=== PATIENT | female | born 1955 | race Caucasian/White ===

== ENCOUNTER → 2019-09-25 11:24 | Outpatient (CLI) | payer OTHER, SELFPAY ==
--- NOTE | 2019-09-25 | DI.MG.S_ITS ---
BILATERAL DIGITAL SCREENING MAMMOGRAM 3D/2D WITH CAD: 09/25/2019 CLINICAL: Routine screening. Comparison is made to exams dated: 03/29/2016 mammogram, 03/17/2013 mammogram, and 03/20/2013 mammogram - [facility]. The tissue of both breasts is heterogeneously dense. This may lower the sensitivity of mammography. Current study was also evaluated with a Computer Aided Detection (CAD) system. There is an irregular mass with a spiculated margin in the left breast superior lateral quadrant posterior depth. There is architectural distortion associated with the mass. There also is an oval asymmetry with an indistinct margin in the left breast anterior depth medial region seen on the craniocaudal view only. No other significant masses, calcifications, or other findings are seen in either breast. IMPRESSION: INCOMPLETE: NEEDS ADDITIONAL IMAGING EVALUATION The irregular mass in the left breast superior lateral quadrant posterior depth is indeterminate. Additional views with possible ultrasound are recommended. The oval asymmetry in the left breast anterior depth medial region seen on the craniocaudal view only is indeterminate. Additional views with possible ultrasound are recommended. This exam was interpreted at Station ID: [id number]. NOTE: For mammograms, a report in lay terms will be sent to the patient. Approximately 15% of breast malignancies will not be visualized mammographically. In the management of a palpable breast mass, a negative mammogram must not discourage biopsy of a clinically suspicious lesion. Electronically Signed By: Torres Sanchez M.D. ecl/:09/25/2019 14:41:48 letter sent: Additional Imaging Needed ACR BI-RADS Category 0: Incomplete [id number]
== END ==
PROVIDERS: PCP Family Medicine; Visit Provider Family Medicine
DX: Z12.31 Encounter for screening mammogram for malignant neoplasm of breast (principal)
CPT/HCPCS: 77063; 77067

== ENCOUNTER → 2019-10-15 07:37 | Outpatient (CLI) | payer OTHER, SELFPAY ==
--- NOTE | 2019-10-15 | DI.MG.S_ITS ---
UNILATERAL LEFT DIGITAL DIAGNOSTIC MAMMOGRAM 3D/2D WITH ADDITIONAL VIEWS: 10/15/2019 CLINICAL: Additional evaluation requested from prior study. Comparison is made to exams dated: 09/25/2019 mammogram, 03/29/2016 mammogram, and 03/20/2013 mammogram - [facility]. The tissue of left breast is heterogeneously dense. This may lower the sensitivity of mammography. Previously identified irregular mass with a spiculated margin in the left breast superior lateral quadrant posterior depth with associated architectural distortion on comparison screening mammograms of 09/25/19 persists with additional views. Previously noted oval asymmetry with an indistinct margin in the left breast anterior depth medial region seen on the craniocaudal view only on comparison screening mammograms of 09/25/19 resolves and has the appearance of benign fibroglandular tissues on additional views. IMPRESSION: INCOMPLETE: NEEDS ADDITIONAL IMAGING EVALUATION 1) Previously identified irregular mass with a spiculated margin in the left breast superior lateral quadrant posterior depth with associated architectural distortion on comparison screening mammograms of 09/25/19 persists with additional views. A targeted ultrasound is recommended for further evaluation, and will be performed immediately following this exam. 2) Previously noted oval asymmetry with an indistinct margin in the left breast anterior depth medial region seen on the craniocaudal view only on comparison screening mammograms of 09/25/19 resolves and has the appearance of benign fibroglandular tissues on additional views. A targeted ultrasound is recommended and will be performed immediately following this exam. This exam was interpreted at Station ID: [id number]. NOTE: For mammograms, a report in lay terms will be sent to the patient. Approximately 15% of breast malignancies will not be visualized mammographically. In the management of a palpable breast mass, a negative mammogram must not discourage biopsy of a clinically suspicious lesion. Electronically Signed By: Torres Sanchez M.D. ecl/:10/15/2019 09:03:58 ACR BI-RADS Category 0: Incomplete [id number]
--- NOTE | 2019-10-15 | DI.US.S_ITS ---
LIMITED ULTRASOUND OF LEFT BREAST: 10/15/2019 CLINICAL: Patient returns today to evaluate asymmetries in the left breast. Comparison is made to exams dated: 10/15/2019 mammogram, 09/25/2019 mammogram, 03/29/2016 mammogram, 03/20/2013 mammogram, 03/17/2013 mammogram - [facility], and 11/14/2009 mammogram - [facility]. Color flow and real-time ultrasound of the left breast upper inner, lower inner, and and upper outer quadrants regions were performed. [place] scale images of the real-time examination were reviewed. There is an irregular hypoechoic mass with a spiculated margin in the left breast superior lateral quadrant at 1:30 position 7 cm from the nipple which measures 0.9 x 0.7 x 0.6 cm with internal vascularity on Doppler imaging. Targeted ultrasound of the left axilla demonstrates morphologically unremarkable lymph nodes with preserved fatty jermey and no suspicious cortical thickening. There is no ultrasound correlate for the previously noted oval asymmetry with an indistinct margin in the left breast anterior depth medial region seen on the craniocaudal view only on comparison screening mammograms of 09/25/19, which also resolved on additional diagnostic mammogram views performed earlier today 10/15/19. IMPRESSION: HIGHLY SUGGESTIVE OF MALIGNANCY 1) 0.9 x 0.7 x 0.6 cm irregular spiculated vascular mass in the left breast at 1:30 position 7 cm from the nipple is highly suggestive of malignancy. An ultrasound guided biopsy is recommended. 2) No ultrasound evidence of left axillary lymphadenopathy. These results and recommendations were discussed with the patient at the time of the exam by the [facility] Radiologist Dr. Meliton Meyer in person. This exam was interpreted at Station ID: [id number]. Electronically Signed By: Torres Sanchez M.D. ecl/:10/15/2019 09:35:24 letter sent: Biopsy Required Ultrasound BI-RADS: 5 Highly suggestive of malignancy
--- NOTE | 2019-12-01 14:58 | ONC.MSW ---
Description: T/C re: scheduling initial consult visit Activity: Spoke with pt, who is recovering from her breast surgery yesterday. Discussed the appointment times available, as well as what to expect the first visit with the Oncologist. Confirmed the appt. time for 12/14 at 1:40pm, 1:20 check-in time. Notified schedulers.
== END ==
PROVIDERS: PCP Family Medicine; Visit Provider Family Medicine
DX: R92.8 Other abnormal and inconclusive findings on diagnostic imaging of breast (principal); N63.21 Unspecified lump in the left breast, upper outer quadrant
CPT/HCPCS: 76642; 77065; G0279

== ENCOUNTER → 2019-11-05 12:23 | Outpatient (CLI) | payer OTHER, SELFPAY ==
--- NOTE | 2019-11-05 | DI.MG.S_ITS ---
UNILATERAL LEFT DIGITAL DIAGNOSTIC MAMMOGRAM POST-NEEDLE BIOPSY: 11/05/2019 CLINICAL: Left breast mass. Comparison is made to exams dated: 10/15/2019 ultrasound, 10/15/2019 mammogram, and 09/25/2019 mammogram - [facility]. The tissue of left breast is heterogeneously dense. This may lower the sensitivity of mammography. Biopsy clip is in the expected area of the left breast. IMPRESSION: Biopsy clip in the expected area of the left breast. This exam was interpreted at Station ID: [id number]. NOTE: For mammograms, a report in lay terms will be sent to the patient. Approximately 15% of breast malignancies will not be visualized mammographically. In the management of a palpable breast mass, a negative mammogram must not discourage biopsy of a clinically suspicious lesion. Electronically Signed By: Rolando Mendiola M.D. fx/:11/05/2019 16:21:23 ACR BI-RADS Category n/a
--- NOTE | 2019-11-05 | PATH_ITS ---
[facility] Accession Number: [id number] . 01 Material submitted: . breast - LEFT BREAST MASS 1:30 7 CM FN . 01 Clinical history: . LEFT BREAST MASS . 02 Diagnosis: Left Breast Mass, 1:30 o'clock, 7 cm From Nipple, Needle Core Biopsies: Invasive ductal carcinoma with the following features: [place] grade: 1 of 3 (intermediate tubule formation, low nuclear grade, low mitotic activity). Greatest linear extent: 3 mm. Ductal carcinoma in situ: Not identified. Microcalcifications: Not identified. Lymphovascular invasion: Not identified. Prognostic markers: See below. . CAP BREAST BIOMARKERS: . Estrogen Receptor (ER) Status: Positive, 90%. Average intensity of staining: Strong. Primary antibody: SP1 Progesterone Receptor (PgR) Status: Positive, 90%. Average intensity of staining: Strong. Primary antibody: 1E2 HER2 (by immunohistochemistry): Negative (1+). Primary antibody: 4B5 . . Cold Ischemia and Fixation Times: Meets requirements in the latest version of the ASCO/CAP guidelines. Testing performed on Block Number: A1 . TECHNICAL NOTE: The scoring criteria for breast biomarkers by immunohistochemistry is based on the current ASCO/CAP guidelines (Cj et al, Arch Pathol Lab Med 2010: 134(6): 907-922 / Robin LACKEY et al, Arch Pathol Lab Med 2014: 138(2): 241-256). Deparaffinized sections of formalin fixed tissue (along with appropriate positive controls) are incubated with the above antibody(s). Using the automated [place] stainer, tissue is incubated with the designated antibody* which is then localized by a non-biotin, dual polymer detection system. The external controls are reviewed for appropriate reactivity and found to be adequate. Results on the target cell population are indicated above. These tests have not been validated on decalcified tissue. * This test was developed and its performance characteristics determined by [employer]. It has not been cleared or approved by the U.S. Food and Drug Administration. The FDA has determined that such clearance or approval is not necessary. This test is used for clinical purposes. It should not be regarded as investigational or for research. MRV 11/10/2019 1512 Local . 02 Comment: As part of routine quality assurance supervisor body, Dr. Hyde has reviewed the H/E slides from this case and agrees with the diagnosis of ductal carcinoma. The finding of ductal carcinoma was reported to Dr. Rashaun Hinton via RN Mya by Dr. Castillo on 11/09/2019 at 3:00 p.m. . 02 Electronically signed: . Zafar Castillo MD, PhD, Pathologist NPI- [id number] . 01 Gross description: . Received one formalin-filled container, labeled with the patient's name, designated left breast mass 1:30 7 cm FN. The specimen is received with a plastic filter in container, sample loose in container and consists of multiple light yellow-ding portions of soft tissue which range in size from 0.1 x 0.1 x 0.1 cm to 0.8 x 0.2 x 0.2 cm. The specimen is filtered, wrapped, and entirely submitted in one cassette. Collection date: 11/05/19. Collection time per container: 1:23 p.m. Total fixation time: Approximately 11 hours. ([id number]) /[facility] 11/06/2019 0237 Local . 02 Pathologist provided ICD-10: C50.412 . 02 CPT . 298125, M08827, B90115 Performed at: 01 [facility] [address] [place] [id number] MD Israel Alvarado MD Phone: [phone] Performed at: 02 [facility] [address] [place], [place] [id number] MD Tiffany Epstein MD Phone: [phone]
--- NOTE | 2019-11-05 | DI.US.S_ITS ---
ULTRASOUND GUIDED BIOPSY LEFT BREAST USING VACUUM DEVICE WITH POST MAMMOGRAPHIC AND ULTRASOUND IMAGIN11/05/2019 CLINICAL: Left breast mass. PATIENT CONSENT: Risks (minor bleeding, infection, vasovagal reaction and repeat procedure), benefits and alternatives were explained to the patient and written informed consent was obtained. Correlation is made to exams dated: 10/15/2019 ultrasound, 10/15/2019 mammogram, 09/25/2019 mammogram, 03/29/2016 mammogram, 03/20/2013 mammogram, and 03/17/2013 mammogram - [facility]. An ultrasound guided biopsy using real-time ultrasound was performed for the oval mass located in the left breast at 1:30 position 7 cm from the nipple. This was described on the previous ultrasound report. The skin was prepped in the usual manner. Local anesthetic was administered to the access site. The abnormality was approached from the lateral aspect. A 13 gauge biopsy needle was placed adjacent to the abnormality under ultrasound guidance. Once the needle was documented to be in the correct location, six specimens were obtained using the Mammotome biopsy system. Post procedure mammographic and ultrasound imaging demonstrates the clip at the targeted area. The specimens were sent to the laboratory for pathological analysis. IMPRESSION: ULTRASOUND GUIDED BIOPSY MALIGNANT Ultrasound guided biopsy of the mass in the left breast at 1:30 position 7 cm from the nipple was successful. Final pathology results per pathologist Dr. Zafar Castillo identified malignant invasive ductal carcinoma. Pathology results are concordant with imaging. Surgical and oncology consults are recommended for further evaluation and management. These results will be communicated to the patient's referring provider. This exam was interpreted at Station ID: [id number]. Rolando bertrand,ecl/:11/11/2019 18:24:27
--- NOTE | 2019-11-17 11:32 | ONC.MSW ---
Description: New Referral Navigation T/C Activity: Left message for pt confirming that we have received her referral, introduced myself as the navigator and requested a return call to discuss her referral and scheduling.
--- NOTE | 2019-11-18 14:16 | ONC.MSW ---
Description: T/C re: referral/scheduling Activity: Called pt and discussed her referral and plan for treatment. Pt is scheduled on 11/30/19 for her lumpectomy, and she will be getting her radiation at [facility]. She was unsure of the role of the Oncologist in her care, INFORMATION BROKER discussed the need to establish care for ongoing maintenance and endocrine therapy once she is done with radiation. Offered support and counseling re: her fears and concerns. Discussed a plan for her to come in for her initial consult visit with the oncologist the last week of November, 2-weeks after her surgery. Forwarded to scheduling to f/u.
--- NOTE | 2019-11-30 12:36 | ONC.MSW ---
Description: T/C re: scheduling Activity: Pt had called inquiring about scheduling and wanting to make sure that we could give her a medical marijuana authorization. Called pt back and left a message with 2-dates and times available for an initial consult visit. Requested she return this call in order to move forward with scheduling.
== END ==
PROVIDERS: PCP Family Medicine; Visit Provider Family Medicine
DX: C50.412 Malignant neoplasm of upper-outer quadrant of left female breast (principal); Z17.0 Estrogen receptor positive status [ER+]
CPT/HCPCS: 19083; 77065

== ENCOUNTER 2019-11-30 08:39 | Day surgery (SDC) | payer OTHER, SELFPAY ==
[2019-11-27 12:13] VITALS: BMI 25.0
[2019-11-30] VITALS (12 sets, daily range): BP systolic 117–132; BP diastolic 72–86; PULSE 67–84; RESP 8–12; TEMP 36–36.2; O2SAT 94–99; BMI 24.7
--- NOTE | 2019-11-30 | DI.MG.S_ITS ---
DIGITAL MAMMOGRAPHY GUIDED WIRE LOCALIZATION LEFT BREAST- POST-NEEDLE BIOPSY: 11/30/2019 CLINICAL: Left breast mass. Correlation is made to exams dated: 11/05/2019 mammogram, 11/05/2019 ultrasound biopsy, 10/15/2019 mammogram, and 09/25/2019 mammogram - [facility]. A wire localization using digital mammography guidance was performed for the marker clip located in the left breast at 2 o'clock middle depth. The skin was prepped in the usual manner. Local anesthetic was administered to the access site. The localization was approached from the craniocaudal aspect. A wire was inserted into the targeted area under digital mammography guidance. IMPRESSION: WIRE LOCALIZATION Wire localization for the marker clip in the left breast at 2 o'clock middle depth was successful. A specimen radiograph is recommended. This exam was interpreted at Station ID: [id number]. Timo saenz/:11/30/2019 14:52:57
--- NOTE | 2019-11-30 | DI.MG.S_ITS ---
SPECIMEN LEFT BREAST: 11/30/2019 CLINICAL: Left breast specimen. Correlation is made to exams dated: 11/30/2019 localization and 11/05/2019 [facility]. A specimen was imaged for the previous biopsy site located in the left breast at 2 o'clock middle depth. IMPRESSION: SPECIMEN The imaged specimen includes a biopsy clip and the distal portion of the localization wire. Waiting for pathology results. A final report will be issued when these become available. This exam was interpreted at Station ID: [id number]. Timo saenz/:12/02/2019 10:14:26
--- NOTE | 2019-11-30 | PATH_ITS ---
[facility] Accession Number: [id number] . 01 Material submitted: . PART A: breast - LEFT BREAST MASS PART B: breast - LEFT BREAST MASS MARGIN PART C: lymph node - LEFT AXILLA SENTINEL NODE PART D: lymph node - LEFT AXILLA NODE (ADJACENT TO SENTINEL NODE) PART E: AXILLARY - LEFT AXILLARY TISSUE PART F: breast - LEFT BREAST MASS, ADDITIONAL TISSUE INFERIOR WALL . 01 Diagnosis: A. Left Breast Mass, Partial Mastectomy: Invasive (ductal) carcinoma, grade 1 of 3 (Melanie combined histologic grade, total score 5/9), with the following features: 1. Tumor size (invasive component): 1.5 cm, by gross measurement; see comment. 2. Tubular differentiation: Moderate degree. (2/3) 3. Nuclear pleomorphism: Intermediate. (2/3) 4. Mitotic rate: Low. (1/3) 5. Ductal carcinoma in situ (DCIS): a. Present, with the following features: i. Nuclear grade: Intermediate. ii. Necrosis: Single cell/punctate necrosis is present. b. Extent: Present on three slides corresponding to tissue slices 6-8, spanning approximately 15 mm. 6. Calcifications: Present, in association with invasive carcinoma, DCIS, and benign breast tissue. 7. Lymphovascular space invasion: Not identified. 8. Resection margins: a. Invasive carcinoma: Negative. - Inferior margin: less than 0.1 cm (block A10), 0.1 cm (blocks A7 and A15). - Anterior margin: 0.1 cm (block A15), 0.15 cm (block A7). - Remaining margins: More than 1 cm. b. DCIS: Negative. - Inferior margin: 0.1 cm (blocks A7 and A10). - Anterior margin: 0.3 cm (block A7). - Remaining margins: More than 1 cm. 9. Prognostic markers (performed on prior biopsy, [facility] case # [id number], 11/05/2019) with the following reported results: a. Estrogen receptor status: Positive. b. Progesterone receptor status: Positive. c. HER2 status: Negative for protein overexpression. 10. Regional lymph node status (please see parts C and D below): Two lymph nodes, negative for malignancy (including one sentinel lymph node). 11. Additional findings: a. Focal atypical ductal hyperplasia, focal flat epithelial atypia, and focal atypical lobular hyperplasia are present. b. Skin, nipple, skeletal muscle and/or chest wall are not present for evaluation. c. Biopsy site changes/clip are present. d. Background fibrocystic change including focal usual ductal hyperplasia, microcysts and columnar cell change/columnar cell hyperplasia. 12. Pathologic stage: pT1c pN0(sn) . B. Left Breast Mass, 'Margin', Excision: Atypical lobular hyperplasia/lobular carcinoma in situ (ALH/LCIS) is present. Focal flat epithelial atypia is also present. Microcalcifications are present in association with benign breast tissue and ALH/LCIS. Radial scar is present. Background fibrocystic change including focal usual ductal hyperplasia, columnar cell change, microcysts, and fibroadenomatoid change. Negative for ductal carcinoma in situ and invasive malignancy. . C. Left Axilla, Bryant Lymph Node, Excisional Biopsy: One lymph node, negative for malignancy (0/1). Associated benign fibrofatty tissue is present. . D. Left Axilla Node, 'Adjacent To Bryant Node', Dissection: One lymph node, negative for malignancy (0/1). Associated benign fibrofatty tissue is present. . E. Left Axillary Tissue, Excision: Benign fibroconnective and fibroadipose tissue. . F. Left Breast Mass, Additional Tissue, Inferior Wall, Excision: Focal atypical lobular hyperplasia (ALH). Background breast with fibrocystic change including adenosis, focal usual ductal hyperplasia, columnar cell change/columnar cell hyperplasia and microcysts. Microcalcifications are present in association with benign breast tissue. Negative for ductal carcinoma in situ and invasive malignancy. [facility] 12/07/2019 0842 Local . 01 Comment: The size of the invasive carcinoma is determined based on gross measurement, and is further ascertained histologically by the involvement of three subsequent slices, each approximately of 0.45 cm in thickness. . 01 Electronically signed: Arianne Louise MD, Pathologist NPI- [id number] . 01 Gross description: . (A) Received: In formalin, labeled left breast mass. Specimen: Left partial mastectomy. Weight: 41 grams. Measurement: 2.5 cm anterior to posterior, 5.0 cm medial to lateral, and 6.0 cm superior to inferior. Skin Ellipse: Apparent questionable 'skin-like' lesional area measuring 1.5 x 0.8 cm is identified on the central inferoanterior aspect. Wire: Present, penetrating the central superior aspect and exiting the central inferior aspect. Margins: Oriented by surgeon with short medial suture and long anterior suture and inked as follows: posterior=black; anterior=purple; superior=blue; inferior=green; medial=yellow; lateral=orange. Sliced: Medial to lateral into 11 slices. Lesion: One lesional area; the cut surface is ferguson-white and irregularly firm. A biopsy clip is identified within slice 8 within the most lateral slice of the lesion. Dr. Da Anne reviewed this excision and agrees with the assessment. Size of lesional area: 1.5 x 0.8 x 0.7 cm. Slices Involved: Slices 6-8. Biopsy Site: Present, biopsy marker identified in slice 8. A densely hemorrhagic area (1.8 x 1.3 x 0.9 cm) is identified in the superior aspect of slices 6-8. The hemorrhagic area is 3.0 cm superior to the apparent skin. Distance To Margins: Less than 0.1 cm from the anterior margin, 1.7 cm from the posterior margin, 4.2 cm from the superior margin, less than 0.1 cm from the inferior margin, 1.7 cm from the medial margin, and 1.7 cm from the lateral margin. Other: The remaining cut surface consists of ding-yellow lobular unremarkable adipose tissue. No other nodules, masses or lesions are identified. Fixation time: The specimen was placed in formalin on 11/30/2019 with no time given. Approximate total fixation time in formalin is calculated to be 56 hours 30 minutes. . Sections: A1: Slice 1, paper sales representative medial end of specimen, perpendicular. A2-A4: Slice 5, tissue medial to apparent skin/lesion and hemorrhagic area, no findings in this slice, submitted superior to inferior, entirely submitted. A5-A7: Slice 6, entirely submitted superior to inferior. A8-A10: Slice 7, entirely submitted superior to inferior. A11-A15: Slice 8, location of biopsy marker, entirely submitted superior to inferior, the superior two-thirds are further bisected. A16-A18: Slice 9, tissue directly lateral to apparent skin/lesion, entirely submitted superior to inferior, no findings within this tissue. (A19): Slice 11, paper sales representative lateral end of specimen, perpendicular. . (B) Received: In formalin, labeled left breast mass margin. Specimen: Left partial mastectomy. Weight: 12 grams. Measurement: 5.0 x 4.0 x 1.5 cm. Skin Ellipse: Absent. Wire: Absent. Margins: Oriented by surgeon with a suture marking the outer wall and inked as follows: outer wall=black; smooth flat surface=blue; surface opposite smooth flat surface=purple; side opposite outer wall=orange. Sliced: The specimen is sliced perpendicularly to the outer wall into 10 slices. Lesions: No obvious nodules, masses or lesions are identified. Other: The cut surface is densely fibrofatty. Fixation time: The specimen was placed in formalin on 11/30/2019 with no time given. Approximate total fixation time in formalin is calculated to be 56 hours 30 minutes. Sections: B1: Slice 1, perpendicular. B2-B9: Slice 2-9, submitted sequentially, one slice in each cassette. B10: Slice 10, perpendicular. Specimen entirely submitted. . (C) Received in formalin, labeled left axilla sentinel node, is a piece of ding-yellow adipose tissue (6.0 x 3.7 x 0.5 cm) containing an unstained lymph node (1.6 x 0.9 x 0.5 cm). The lymph node is serially sectioned and entirely submitted in cassette C1, and the remaining adipose tissue is entirely submitted in cassettes C2-C5. (D) Received in formalin, labeled left axilla node next to sentinel node, is a piece of ding-yellow adipose tissue (5.0 x 2.0 x 1.3 cm) containing an unstained lymph node (2.5 x 1.5 x 1.2 cm). The lymph node is serially sectioned and entirely submitted in cassettes D1-D3, and the remaining adipose tissue is entirely submitted in cassettes D4-D5. (E) Received in formalin, labeled left axillary tissue, is a piece of ding-yellow adipose tissue (3.3 x 2.5 x 0.9 cm) containing an irregular focally firm area (1.8 x 2.0 x 1.0 cm). No obvious lymph node is identified. Serially sectioned and entirely submitted in cassettes E1-E4. (F) Received in formalin, labeled left breast mass-additional tissue inferior wall, is an unoriented piece of ding-yellow rubbery adipose tissue (1 gram, 2.6 x 1.2 x 0.7 cm) with no overlying skin. The tissue is serially sectioned into eight slices and has a fatty focal fibrous firm cut surface. No obvious nodules, masses or lesions are identified. The smooth flat side is inked purple and the irregular side/opposite side is inked blue. Section code: (F1) slice 1, perpendicularly sectioned; (F2) slices 2-4; (F3) slice 5-7; (F4) slice 8, perpendicularly sectioned. Specimen entirely submitted. (:cmc10 [id number]) (MT:cmc10 [id number]) /MRV 12/07/2019 0842 Local . 01 Microscopic: . A focus of detached glandular nests is present within a dilated space in block A7, and is evaluated with D2-40 and p63 immunostains, with appropriately staining external controls, to exclude lymphovascular space invasion. The area of interest is positive for both for D2-40 and p63, in support of no evidence of lymphovascular space invasion; the findings support sloughed epithelium within a ductular space. Deeper levels are examined on A7, A10 and A15. . * This test was developed and its performance characteristics determined by [employer]. It has not been cleared or approved by the U.S. Food and Drug Administration. The FDA has determined that such clearance or approval is not necessary. This test is used for clinical purposes. It should not be regarded as investigational or for research. . 01 Pathologist provided ICD-10: C50.412 . 01 CPT . 267553, H41424, T32124, 297745, 488251, 501279, 665276, 660117 Performed at: 01 [facility] [address] [address] [place] [address] [address] [facility], [place], [place] [id number] MD Israel Alvarado MD Phone: [phone]
--- NOTE | 2019-11-30 09:02 | DI.NM.S_ITS ---
PROCEDURE: NM SENTINEL NODE W IMAGING RADIOPHARMACEUTICAL: 0.5-1.0 mCi Millipore filtered Tc-99m sulfur colloid. INDICATIONS: Mammo guided needle loc and lumpectomy, SN bx TECHNIQUE: The area around the nipple was prepped and draped in a sterile fashion. Tc-99m sulfur colloid was injected intra-dermally in the outer edge of the areola in the left breast. Images were obtained subsequently. A body contour outline was obtained. FINDINGS: There are 4-5 lymph node(s) in the ipsilateral axilla, which is marked on the skin and the images for referring physician. IMPRESSION: Multiple sentinel lymph nodes are identified in the left axilla. Dictated by: Rolando Mendiola M.D. on 11/30/2019 at 11:16 Approved by: Rolando Mendiola M.D. on 11/30/2019 at 11:20
[2019-11-30] MEDS: LACTATED RINGERS 1,000 ML 42 ML IV ×2 (11:05→14:18)
--- NOTE | 2019-11-30 11:06 | SUR.PREOP ---
1158 returned from , [facility] cup is in place, cheerful and talkative, student nurse followed her through the procedure.
--- NOTE | 2019-11-30 11:37 | PM.PREOP ---
Pre-operative Note Interval Note History & Physical reviewed/Exam performed by Physician: Yes Changes to H&P: Yes H&P completed within 30 days and has changed as indicated here:: successful nedle loc/mapping performed
[2019-11-30] MEDS: CEFAZOLIN 2 GM/100 ML FROZ.PIGGY IV (11:45)
--- NOTE | 2019-11-30 12:06 | SUR.OPER ---
Supine on padded OR bed, head on pillow, arms secured on padded arm boards at <90 degrees abduction, legs uncrossed, safety belt at thigh, tape over blanket over lower legs.
[2019-11-30] MEDS: BUPIVACAINE 0.5% (PF) VIAL 30 ML INJ (12:17)
[2019-11-30] MEDS: fentaNYL 100 MCG/2 ML INJ IV ×2 (14:24→14:33)
--- NOTE | 2019-11-30 14:30 | PM.OP.1 ---
Operative Date/Time/Diagnoses Date of procedure: 11/30/19 Time of procedure: 14:09 Pre-op diagnosis: Left-sided breast cancer upper outer quadrant Post-op diagnosis: same Procedure & Clinicians Procedure: Needle localization and lumpectomy with sentinel node biopsy Same procedure as scheduled: Yes Indications: Patient with biopsy-proven invasive breast cancer for surgical treatment Surgeon: Nam Norton Click Yes if Unassisted: Yes Anesthesia Type: General Operative Notes Findings: Concerned about a close margin on the lumpectomy therefore additional tissue was taken in the area of concern. One small hot node identified in the axilla with an adjacent larger node removed as well. Closure Type: primary Specimen(s): other (Multiple pieces of breast tissue and axillary tissue(nodes)) Prosthetic devices, grafts, tissues, transplants, or devices: None Estimated Blood Loss (mL): 40 Blood products transfused: none Procedure in detail: The patient was placed supine on the operating room table underwent general LMA anesthesia. The protective cup around the needle was removed and the needle trimmed in length. Patient was prepped and draped in the usual fashion. A transverse incision was made across the lowest portion of the axilla below the hair-bearing area at to encompass both the the lumpectomy portion of the procedure and the sentinel node biopsy. Using the needle as a guide the tissue around it was taken out. The anterior dissection was right under the skin. Posteriorly we actually got down to the axilla. When I removed the tissue a I was concerned looking at the location of the needle that there may be tumor at the edge and therefore I took additional tissue right at that spot and marked the outside wall with a suture. Once this was removed I cauterized any bleeding vessels in turned my attention the axilla. Using the Neoprobe identified an area of high positivity dissected down to a small lymph node which was removed with its surrounding fat. 10 second counts in this were over 26,000. There were no other axillary counts approaching 250. There was an additional visible enlarged node adjacent to the tissue containing the hot sentinel node and this was removed as well. Cautery was used to control any bleeding. The area was irrigated suctioned free of fluid. Meticulous hemostasis achieved. On palpation there was a small irregular area in the biopsy cavity inferior wall that I removed. This was sent as a separate specimen. The space of the biopsy an portion of the axilla was closed with interrupted 3 0 Vicryl. The skin was closed running 4 0 Vicryl subcuticular stitch and Steri-Strips. Dressing was applied. Patient tolerated the procedure well. Complications: none Post-operative Condition: stable Disposition: PACU Plan for aftercare: Follow-up in the office
[2019-11-30] MEDS: HYDROMORPHONE 2 MG INJ IV ×2 (14:49→14:54)
[2019-11-30] MEDS: MEPERIDINE 50 MG/ML INJ 25 MG IV (14:51)
[2019-11-30] MEDS: HYDROCODONE/ACET 5/325 TABLET 1 TAB PO (15:45)
--- NOTE | 2019-11-30 16:45 | SUR.PHASEII ---
1630 voided, clear yellow urine, took 15 minutes to find car/tow car driver. Fresh ice pack given upon discharge. Drowsy, pleased with improving pain level, [place] pass given. Stable and pleasant, no complaints, all questions answered.
== END 2019-11-30 16:30 | disposition home or self-care (01) ==
PROVIDERS: PCP Family Medicine; Referring Provider Specialist; Visit Provider Specialist
PROC: (CPT 19301; principal; 2019-11-30 11:45)
DX: C50.412 Malignant neoplasm of upper-outer quadrant of left female breast (principal); Z17.0 Estrogen receptor positive status [ER+]
CPT/HCPCS: 19301; 38500; 19281; 76098; 78195; A9541; J0690; J1100; J1170; J2175; J2250; J2405; J2704; J3010

== ENCOUNTER → 2020-04-11 12:48 | Outpatient (CLI) | payer OTHER, SELFPAY | PROVIDERS: PCP Family Medicine; Referring Provider Internal Medicine Hematology & Oncology; Visit Provider Internal Medicine Hematology & Oncology | DX: C50.012 Malignant neoplasm of nipple and areola, left female breast (principal); Z17.0 Estrogen receptor positive status [ER+]; Z78.0 Asymptomatic menopausal state | CPT/HCPCS: 77080 ==

== ENCOUNTER → 2020-10-19 12:42 | Outpatient (CLI) | payer OTHER, SELFPAY ==
--- NOTE | 2020-10-19 | DI.MG.S_ITS ---
BILATERAL DIGITAL DIAGNOSTIC MAMMOGRAM 3D/2D POST LUMPECTOMY: 10/19/2020 CLINICAL: Breast cancer. Comparison is made to exams dated: 11/05/2019 mammogram, 10/15/2019 mammogram, and 09/25/2019 mammogram - [facility]. The tissue of both breasts is heterogeneously dense. This may lower the sensitivity of mammography. There are new benign surgical clips and expected post surgical scar in the left breast in the upper outer quadrant. No significant masses, calcifications, or other findings are seen in either breast. Specifically, no finding to explain the patient's nipple to axilla pain, other than routine surgery items. IMPRESSION: BENIGN There is no unexpected finding seen in the left breast to correspond with the pain in the upper outer quadrant. There is no mammographic evidence of malignancy. Return to annual mammogram screening schedule is recommended. Findings and recommendations were conveyed to the patient at time of exam. This exam was interpreted at Station ID: [id number]. NOTE: For mammograms, a report in lay terms will be sent to the patient. Approximately 15% of breast malignancies will not be visualized mammographically. In the management of a palpable breast mass, a negative mammogram must not discourage biopsy of a clinically suspicious lesion. Electronically Signed By: Rachell sun/:10/19/2020 13:32:22 letter sent: Normal Exam ACR BI-RADS Category 2: Benign Finding(s) 3342F
== END ==
PROVIDERS: PCP Family Medicine; Referring Provider Family Medicine; Visit Provider Family Medicine
DX: N64.4 Mastodynia (principal)
CPT/HCPCS: 77066; G0279

== ENCOUNTER → 2021-12-13 11:30 | Outpatient (CLI) | payer MEDICARE, OTHER, SELFPAY ==
--- NOTE | 2021-12-13 11:32 | DI.MG.S_ITS ---
BILATERAL DIGITAL SCREENING MAMMOGRAM 3D/2D WITH CAD: 12/13/2021 CLINICAL: Routine screening. Personal history of left breast cancer. Comparison is made to exams dated: 10/19/2020 mammogram, 11/05/2019 mammogram, 11/05/2019 ultrasound biopsy, 10/15/2019 mammogram, 09/25/2019 mammogram, and 03/29/2016 mammogram - [facility]. The tissue of both breasts is heterogeneously dense. This may lower the sensitivity of mammography. Current study was also evaluated with a Computer Aided Detection (CAD) system. No significant masses, calcifications, or other findings are seen in either breast. There has been no significant interval change. IMPRESSION: NEGATIVE There is no mammographic evidence of malignancy. A 1 year screening mammogram is recommended. This exam was interpreted at Station ID: [id number]. NOTE: For mammograms, a report in lay terms will be sent to the patient. Approximately 15% of breast malignancies will not be visualized mammographically. In the management of a palpable breast mass, a negative mammogram must not discourage biopsy of a clinically suspicious lesion. Electronically Signed By: Jermaine Mcdermott M.D., jr/codi:12/13/2021 11:56:21 copy to: PETERSON DECKER, ph: [phone], fax: [phone] letter sent: Normal Exam ACR BI-RADS Category 1: Negative [id number]
== END ==
PROVIDERS: PCP Family Medicine; Referring Provider Family Medicine; Visit Provider Family Medicine
DX: Z12.31 Encounter for screening mammogram for malignant neoplasm of breast (principal); Z85.3 Personal history of malignant neoplasm of breast
CPT/HCPCS: 77063; 77067

== ENCOUNTER → 2023-01-02 11:34 | Outpatient (CLI) | payer MEDICARE, OTHER, SELFPAY ==
--- NOTE | 2023-01-02 | DI.MG.S_ITS ---
BILATERAL DIGITAL DIAGNOSTIC MAMMOGRAM 3D/2D: 01/02/2023 CLINICAL: Right lump, Left pain. Comparison is made to exams dated: 12/13/2021 mammogram, 10/19/2020 mammogram, 11/05/2019 mammogram, 11/05/2019 ultrasound biopsy, and 10/15/2019 ultrasound - [facility]. Both breasts are heterogeneously dense, which may obscure small masses (category c / 51-75% glandular tissue). There are benign post operative findings in the left breast. No significant masses, calcifications, or other findings are seen in either breast. IMPRESSION: INCOMPLETE: NEEDS ADDITIONAL IMAGING EVALUATION There is no abnormality seen in the left breast to correspond with the palpable abnormality, however, ultrasound is recommended. This exam was interpreted at Station ID: [id number]. NOTE: For mammograms, a report in lay terms will be sent to the patient. Approximately 15% of breast malignancies will not be visualized mammographically. In the management of a palpable breast mass, a negative mammogram must not discourage biopsy of a clinically suspicious lesion. Electronically Signed By: Bacilio Lau M.D. acr/:01/02/2023 12:37:44 copy to: PETERSON DECKER, ph: [phone], fax: [phone] ACR BI-RADS Category 0: Incomplete 3340F
--- NOTE | 2023-01-02 11:35 | DI.US.S_ITS ---
PROCEDURE: US BREAST RT LIMITED COMPARISON: None. INDICATIONS: HX BREAST CANCER,RIGHT BREAST LUMP FINDINGS: IMPRESSION: Dictated by: Bacilio Lau M.D. on 01/02/2023 at 14:57 Approved by: Bacilio Lau M.D. on 01/02/2023 at 14:58
--- NOTE | 2023-01-02 13:15 | DI.US.S_ITS ---
Procedure: US breast RT limited ULTRASOUND OF RIGHT BREAST: 01/02/2023 CLINICAL: Palpable right breast lump by physician. Comparison is made to exams dated: 01/02/2023 mammogram, 12/13/2021 mammogram, 10/19/2020 mammogram, 09/25/2019 mammogram, 03/29/2016 mammogram, and 03/17/2013 mammogram - [facility]. Color flow, real-time, and continuous wave Doppler ultrasound of the right breast were performed. No abnormality which corresponds with the palpable abnormality is seen. IMPRESSION: NEGATIVE There is no sonographic evidence of malignancy. Clinical followup is recommended. A 1 year screening mammogram is recommended. This exam was interpreted at Station ID: [id number]. Electronically Signed By: Bacilio Lau M.D. acr/:01/02/2023 15:00:40 copy to: PETERSON DECKER, ph: [phone], fax: [phone] Continued Report - Page 2 of 2 Patient Name: STEPHANIE HUMPHREY date: 1955 Sex: F Attending Physician: Derick Indications: Date: 01/02/2023 15:00 At the request of: ANTONIETA ARMENTA Procedure: US breast RT limited Ultrasound BI-RADS: 1 Negative
== END ==
PROVIDERS: PCP Nurse Practitioner Family; Referring Provider Internal Medicine Hematology & Oncology; Visit Provider Internal Medicine Hematology & Oncology
DX: Z85.3 Personal history of malignant neoplasm of breast (principal); N63.10 Unspecified lump in the right breast, unspecified quadrant; N64.4 Mastodynia; R92.2 Inconclusive mammogram
CPT/HCPCS: 76642; 77066; G0279

== ENCOUNTER → 2023-03-12 08:43 | Outpatient (CLI) | payer MEDICARE, OTHER, SELFPAY ==
--- NOTE | 2023-03-12 | DI.MRI.S_ITS ---
PROCEDURE: MR LUMBAR SPINE WO CON INDICATIONS: LUMBAR PAIN TECHNIQUE: Noncontrast sagittal T1 spin echo and T2 fast echo, sagittal STIR, and T2 fast spin echo through the lumbar spine. In cases with scoliosis, additional coronal T2 fast spin echo may be performed. COMPARISON: [facility], CR, XR LUMBAR SPINE WITH OBLIQUES PLUS FLEXION EXTENSION, 03/05/2023, 14:14. FINDINGS: Image quality: Excellent. Alignment and Curvature: 5 lumbar type vertebral bodies are present by plain film. 4 mm of retrolisthesis of L2 on L3. 2 mm of retrolisthesis of L3 on L4. Bone Marrow: Marrow is of normal overall signal. No acute vertebral body compression fractures. Mild reactive signal throughout the endplates of the lumbar and lower thoracic spine. Spinal Cord: Conus medullaris terminates at the mid L2 level. Visualized cord demonstrates normal signal and size. Paraspinous Soft Tissues: No paravertebral masses. T12-L1: Moderate disc desiccation. Mild diffuse disc bulge. Mild canal stenosis. No foraminal stenosis. L1-L2: Mild disc desiccation and diffuse disc bulge. Mild facet and ligamentum flavum hypertrophy. Mild canal stenosis. No foraminal stenosis. L2-L3: Moderate disc desiccation. Mild diffuse disc bulge. Mild epidural lipomatosis. Mild canal stenosis. Mild bilateral foraminal stenosis. L3-L4: Moderate disc desiccation. Mild diffuse disc bulge with superimposed right posterolateral protrusion. Mild facet and ligamentum flavum hypertrophy. Mild epidural lipomatosis. Mild canal stenosis. Moderate right and mild left foraminal stenosis. L4-L5: Mild disc desiccation and diffuse disc bulge. Mild facet and ligamentum flavum hypertrophy. Mild epidural lipomatosis. Mild canal stenosis. Mild right and moderate left foraminal stenosis. L5-S1: Severe disc height loss and desiccation. Mild diffuse disc bulge. Mild bilateral facet hypertrophy. Mild canal stenosis. Mild bilateral foraminal stenosis. IMPRESSION: 1. Multilevel degenerative disc and facet disease, as well as ligamentum flavum hypertrophy and epidural lipomatosis. 2. Mild multilevel canal stenosis. 3. Multilevel foraminal stenoses, worst at L3-L4 and L4-L5 where there are moderate foraminal stenoses. Dictated by: Meliton Meyer M.D. on 03/12/2023 at 10:26 Transcribed by: CASI on 03/12/2023 at 10:29 Approved by: Meliton Meyer M.D. on 03/12/2023 at 15:27
== END ==
PROVIDERS: PCP Nurse Practitioner Family; Referring Provider Physical Medicine & Rehabilitation Pain Medicine; Visit Provider Physical Medicine & Rehabilitation Pain Medicine
DX: M54.50 Low back pain, unspecified (principal); M51.36 Other intervertebral disc degeneration, lumbar region; M48.061 Spinal stenosis, lumbar region without neurogenic claudication; M47.816 Spondylosis without myelopathy or radiculopathy, lumbar region
CPT/HCPCS: 72148

== ENCOUNTER → 2023-04-03 09:30 | Outpatient (CLI) | payer MEDICARE, OTHER, SELFPAY ==
--- NOTE | 2023-04-03 09:46 | DI.DEXA.S_ITS ---
Bone Density Report Name: STEPHANIE HUMPHREY Age: 68 Sex: Female Ethnicity: White Date of : 1955 Indication: osteopenia; Referring Provider: HIPOLITO EPSTEIN Study: Bone densitometry was performed. Exam Date: April 03, 2023 Accession number: [id number] Bone Density: Region BMD T-score Z-score Classification AP Spine(L1-L4) 0.814 -2.1 -0.2 Osteopenia Femoral Neck (Left) 0.725 -1.1 0.5 Osteopenia Total Hip (Left) 0.878 -0.5 0.8 Normal Femoral Neck (Right) 0.739 -1.0 0.6 Normal Total Hip (Right) 0.847 -0.8 0.6 Normal Total Hip Mean 0.863 -0.7 0.7 Normal World Health Organization criteria for BMD impression classify patients as: Normal (T-score at or above -1.0), Osteopenia (T-score between -1.0 and -2.5), or Osteoporosis (T-score at or below -2.5). 10-year Fracture Risk(1): Major Osteoporotic Fracture 8.6% Hip Fracture 0.8% Reported Risk Factors: [place] (), Neck BMD=0.725, BMI=26.2 (1) FRAX(R) Version 3.08. Fracture probability calculated for an untreated patient. Fracture probability may be lower if the patient has received treatment. Previous Exams: -- Region Exam Age BMD T-score BMD Change BMD Change Date g/cm2 vs Baseline vs Previous -- AP Spine (L1-L4) 04/03/2023 68 0.814 -2.1 0.008 (1.0%)# 0.008 (1.0%)# 04/11/2020 65 0.806 -2.2 Total Hip(Left) 04/03/2023 68 0.878 -0.5 -0.005 (-0.6%)# -0.005 (-0.6%)# 04/11/2020 65 0.883 -0.5 Total Hip(Right) 04/03/2023 68 0.847 -0.8 -0.045 (-5.1%)# -0.045 (-5.1%)# 04/11/2020 65 0.892 -0.4 -- *Denotes significance at 95% confidence level, LSC for AP Spine = 0.022 g/cm2, LSC for Total Hip = 0.027 g/cm2 # Denotes dissimilar scan types or analysis methods Impression: The patient has low bone mass, based on the Total Spine T-score. The patient has an estimated ten-year risk of hip fracture of 0.8% and an estimated ten-year risk of major fracture of 8.6%, based on the WHO FRAX algorithm. No significant bone loss was observed. Discussion: BONE DENSITY IS LOW AT ONE OR MORE SKELETAL SITES. This patient's lowest T-score is low at one or more skeletal sites. It meets the World Health Organization's (WHO) criteria for ?low bone mass? (T-score between -1.0 and -2.5). The patient's 10-year risk of fracture as calculated by FRAX is less than the threshold where pharmacological therapy is recommended by the National Osteoporosis Foundation (NOF). However, all treatment decisions require clinical judgment and consideration of individual patient factors, including patient preferences, comorbidities, previous drug use, risk factors not captured in the FRAX model (e.g., frailty, falls, vitamin D deficiency, increased bone turnover, interval significant decline in bone density) and possible under or overestimation of fracture risk by FRAX. The patient should follow a healthful lifestyle (good nutrition with adequate calcium and vitamin D, and appropriate weight-bearing exercise). Follow-Up: Consider repeating this study in 2 to 3 years to reassess this patient's status, or sooner if there is some new clinical indication. Reported by: TRANG GIFFORD M.D. on 04/03/2023 9:54:00 AM.
== END ==
PROVIDERS: PCP Nurse Practitioner Family; Referring Provider Nurse Practitioner Family; Visit Provider Nurse Practitioner Family
DX: M85.88 Other specified disorders of bone density and structure, other site (principal); Z78.0 Asymptomatic menopausal state
CPT/HCPCS: 77080

== ENCOUNTER → 2024-01-07 09:19 | Outpatient (CLI) | payer MEDICARE, OTHER, SELFPAY ==
--- NOTE | 2024-01-07 09:23 | DI.MG.S_ITS ---
BILATERAL DIGITAL SCREENING MAMMOGRAM 3D/2D WITH CAD POST LUMPECTOMY: 01/07/2024 CLINICAL: Routine screening. Personal history of left breast cancer. Comparison is made to exams dated: 01/02/2023 mammogram, 12/13/2021 mammogram, and 10/19/2020 mammogram - [facility]. Both breasts are heterogeneously dense, which may obscure small masses (category c / 51-75% glandular tissue). Current study was also evaluated with a Computer Aided Detection (CAD) system. There are benign post operative findings in the left breast. No significant masses, calcifications, or other findings are seen in either breast. There has been no significant interval change. IMPRESSION: BENIGN There is no mammographic evidence of malignancy. A 1 year screening mammogram is recommended. This exam was interpreted at Station ID: [id number]. NOTE: For mammograms, a report in lay terms will be sent to the patient. Approximately 15% of breast malignancies will not be visualized mammographically. In the management of a palpable breast mass, a negative mammogram must not discourage biopsy of a clinically suspicious lesion. Electronically Signed By: Rickie felix/codi:01/07/2024 13:54:10 copy to: PETERSON DECKER, ph: [phone], fax: [phone] copy to: Ela Colunga letter sent: Normal Exam ACR BI-RADS Category 2: Benign Finding(s) [id number]
== END ==
LOC: MAMMO 09:22
PROVIDERS: PCP Nurse Practitioner Family; Referring Provider Nurse Practitioner Family; Visit Provider Nurse Practitioner Family
DX: Z12.31 Encounter for screening mammogram for malignant neoplasm of breast (principal); Z85.3 Personal history of malignant neoplasm of breast; R92.333 Mammographic heterogeneous density, bilateral breasts
CPT/HCPCS: 77063; 77067

== ENCOUNTER → 2024-08-31 11:27 | Outpatient (CLI) | payer MEDICARE, OTHER, SELFPAY ==
--- NOTE | 2024-08-31 11:32 | DI.MRI.S_ITS ---
BREAST MRI OF BOTH BREASTS: 08/31/2024 CLINICAL: Dense Breasts. Breast cancer. TECHNIQUE: The patient was placed prone in a dedicated breast imaging coil. Precontrast axial STIR and 3D FLASH without fat saturation sequences were obtained. Both before and after bolus injection of contrast, sequential 1-minute axial 3D FLASH with fat saturation sequences for 3 time points, with subtraction images and maximum intensity projections (MIP's) generated. Delayed sagittal FLASH images with fat saturation were also obtained. 20 cc ProHance gadolinium based IV contrast. Computer-aided detection, including computer algorithm analysis of MRI image data for lesion detection and characterization, pharmacokinetic analysis, with further physician review for interpretation, was performed. COMPARISON: [facility], , MM SCREENING MAMMO BI, 01/07/2024, 9:47. US, US BX BREAST PERC W VAC DEVICE, 11/05/2019, 12:42. FINDINGS: Image quality: Excellent. There is mild background parenchymal enhancement. Right breast: No suspicious mass or non masslike enhancement. No nipple or skin abnormality. Left breast: Postsurgical changes in the upper outer left breast posterior depth. No associated abnormal enhancement. Normal intramammary lymph node identified. No suspicious mass or non masslike enhancement. No nipple or skin abnormality. Miscellaneous: No suspicious axillary or internal mammary chain adenopathy. T2 hyperintensity in the right hepatic lobe, cyst versus hemangioma. No abnormal enhancement of the visible chest wall, liver, heart, or lungs. IMPRESSION: BENIGN No MR evidence of malignancy in either breast. Postsurgical changes in the left breast without suspicious enhancement. No adenopathy. Continue annual screening mammography and screening MRI as needed. BIRADS two, benign COMMENT: The imaging literature indicates that a negative contrast breast MRI examination has a high sensitivity and a moderate specificity for detecting and excluding invasive carcinomas to a detection threshold of 3-5 mm; nonetheless, appropriate clinical and mammographic follow-up are recommended. MRI is not sensitive for detecting DCIS (ductal carcinoma in situ) and may not detect large invasive neoplasms that show only minimal enhancement such as mucinous carcinoma. If there are suspicious calcifications or clinically worrisome palpable masses, then biopsy should still be considered. Invasive neoplasms can be hidden by co-existent and benign enhancement caused by mastitis, hormone therapy effects, radiation therapy, , and recent biopsy or surgery. False positive examinations can occur in a number of circumstances, including breasts that have recently been subject to invasive procedures and those that contain atypical ductal hyperplasia, hormonally stimulated glandular tissue, fat necrosis, or radial scars. This exam was interpreted at Station ID: [id number]. Electronically Signed By: Rachell sun/:09/01/2024 16:49:29 copy to: PETERSON DECKER, ph: [phone], fax: [phone] copy to: Ela Colunga letter sent: Normal Exam ACR BI-RADS Category 2: Benign
== END ==
PROVIDERS: PCP Family Medicine; Referring Provider Nurse Practitioner; Visit Provider Nurse Practitioner
DX: C50.912 Malignant neoplasm of unspecified site of left female breast (principal); Z17.0 Estrogen receptor positive status [ER+]
CPT/HCPCS: 77049; A9579

== ENCOUNTER → 2025-01-11 08:56 | Outpatient (CLI) | payer MEDICARE, OTHER, SELFPAY ==
--- NOTE | 2025-01-11 08:57 | DI.MG.S_ITS ---
MM screening mammo BI: 01/11/2025. BI-RADS: 2 CLINICAL: 69-year old female for bilateral screening mammogram. No Tyrer-Cuzick risk score calculation due to the patient's personal history of breast cancer. Patient reports a history of left breast carcinoma diagnosed at age 63. Status-post left lumpectomy. No first-degree family history of breast cancer. Patient was diagnosed within the last 5 years. PRIOR EXAMS 08/31/2024, 01/07/2024, 01/02/2023, 12/13/2021, 10/19/2020, 11/30/2019, 11/05/2019, 10/15/2019, 09/25/2019, 03/29/2016. MAMMOGRAPHY TECHNIQUE: 2D and 3D (tomosynthesis) digital mammographic views obtained, with additional images as needed for full coverage. Current study was also evaluated with a Computer Aided Detection (CAD) system. DENSITY C. The breasts are heterogeneously dense, which may obscure small masses. MAMMOGRAPHY FINDINGS Right: No suspicious mass, asymmetry, microcalcification, or other abnormality seen. No significant change from comparison. Left: Benign-appearing post-surgical changes noted on the left. There are no suspicious masses, calcifications, or other findings in the breast. No significant change from comparison. IMPRESSION: Right * No evidence of malignancy. Left * No evidence of malignancy with benign findings. RECOMMENDATIONS Bilateral * Annual screening mammography. OVERALL ASSESSMENT CATEGORY BI-RADS-2: Benign. The [employer] recommends annual screening mammography beginning at age 40 for women with average risk of breast cancer. ELECTRONICALLY SIGNED: Radha Hare M.D. on 01/11/2025 at 04:19:27 PM PT Interpreting Station ID: [id number]
== END ==
PROVIDERS: PCP Family Medicine; Referring Provider Family Medicine; Visit Provider Family Medicine
DX: Z12.31 Encounter for screening mammogram for malignant neoplasm of breast (principal); Z85.3 Personal history of malignant neoplasm of breast; R92.333 Mammographic heterogeneous density, bilateral breasts
CPT/HCPCS: 77063; 77067